=== PATIENT | male | born 1945 | race Caucasian/White ===

== ENCOUNTER 2017-02-27 03:16 | Emergency (ER) | payer MEDICARE, BC ==
[2017-02-27 03:41] LABS: Hematocrit 40.1 % (42.0-52.0); Hemoglobin 13.6 gm/dL (13.5-18.0); Mean Cell Volume 89.3 fl (78-100); Mean Corpuscular Hemoglobin 30.3 pg (27-31); Mean Corpuscular Hgb Conc 33.9 g/dl (32-36); Mean Platelet Volume 10.1 fl (6.0-9.5); Platelet Count 224 K/mm3 (150-450); Red Blood Count 4.49 M/mm3 (4.7-6.0); Red Cell Distribution Width 12.6 % (11.5-14.0); White Blood Count 20.2 K/mm3 (4.0-10.5)
[2017-02-27 03:54] LABS: Albumin * 3.6 gm/dl (3.4-5.0); Anion Gap 16.5 mmol/L (6.8-13.8); BUN/Creatinine Ratio 14.7 (9.0-21.6); Bilirubin, Total 0.6 mg/dL (0.0-1.1); Ca. Corrected For Albumin 9.3 mg/dL (8.4-10.2); Calcium * 9.3 mg/dL (7.9-10.9); Carbon Dioxide 23.7 mmol/L (24-32.6); Potassium 4.2 mmol/L (3.4-4.6); Total Protein 7.5 gm/dL (6.2-8.2)
[2017-02-27 04:00] LABS: Total Cells Counted 100
[2017-02-27] MEDS ORDERED: ALTEPLASE 1 MG UNIT ONE (04:00)
[2017-02-27 04:01] VITALS: BP 179/84
[2017-02-27 04:07] LABS: Atypical (Reactive) Lymph 1 % (0-2); Basophil 1 % (0-1); Dohle Bodies 1+; Eosinophil 4 % (0-3); Hypersegmented Polys 3+; Lymphocyte 51 % (20-51); Monocyte 4 % (0-9); Neutrophil 39 % (42-75); Neutrophil # 7.9 K/mm3 (1.3-6.0); Platelet Estimate Increased (NORMAL); Rouleaux 2+
--- NOTE | 2017-02-27 04:19 | ERNOTE ---
Neuro HPI ER Record Presenting Symptoms: weakness, numbness, impaired speech Time Seen by Provider: 02/27/17 03:20 Source: patient Exam Limitations: clinical condition Allergies/Adverse Reactions: Allergies Allergy/AdvReac Type Severity Reaction Status Date / Time No Known Drug Allergies Allergy Verified 02/27/17 03:28 - History of Present Illness Narrative: Pt states he was up as he generally is at night, he began to notice his right arm and leg were weak and he was having difficulty speaking around 01:30. He had difficulty alerting the others in the house. Onset: sudden onset - around 01:30 Severity: moderate - Character of Deficits New weakness: Present: RUE, RLE, facial (rt) Altered sensation: Present: facial (rt) Additional Deficits: Present: impaired speech, decrease ability to stand, decrease ability to walk Baseline Cognition: Present: alert, oriented x 4 Baseline Gait: Present: walks w/o assistance Associated Symptoms: Reports: none Review of Systems - Review of Systems Constitutional: Absent: recent illness, fever, chills EYE: Present: no symptoms reported ENT: Present: no symptoms reported Respiratory: Absent: shortness of breath Cardiology: Absent: chest pain Gastrointestinal/Abdominal: Present: nausea, vomiting - in the ED Genitourinary: Present: no symptoms reported Musculoskeletal: Present: no symptoms reported Neurological: Present: See HPI. Absent: headache Endocrine: Present: no symptoms reported Hematologic/Lymphatic: Present: no symptoms reported Psych: Present: no symptoms reported - Patient's Past Medical History Patient History - Cardiac/Respiratory: Hypertension Physical Exam - Physical Exam General Appearance: Present: wd/wn, alert, mild distress Eye Exam: PERRL: bilateral, EOMI: bilateral Ears, Nose, Throat: Present: normal ENT inspection Neck: Present: normal inspection, nontender Respiratory: Present: no respiratory distress, lungs clear Cardiovascular/Chest: Present: regular rate, rhythm, no murmur Gastrointestinal/Abdominal: Present: normal bowel sounds, nontender Extremity Exam: Present: normal inspection Neurological Exam: Present: alert, oriented, facial droop - right, motor weakness - right arm and leg, other - dysarthria Skin Exam: Present: normal color, warm/dry Lymphatic Exam: Present: no adenopathy Carla Coma Scale - Assess Eye Opening: Spontaneous Motor: Obeys Commands Verbal: Oriented - Total Coma Scale Total: 15 Initial Stroke Assessment - NIH Stroke Scale Level of Consciousness: Alert LOC Questions (Year and Age): Answers both correctly LOC Commands (open/close eyes/fist): Performs both correctly Lateral Gaze Paresis: None Visual Field Loss: No visual loss Facial Palsy: Partial facial paralysis Right Arm Motor (10 sec hold): Drift, effort made Left Arm Motor (10 sec hold): No drift Right Leg Motor (5 sec hold): Drift, effort made Left Leg Motor (5 sec hold): No drift Limb Ataxia (finger/nose heel/gar): Present in 2 limbs If present, ataxia in:: Right arm, Right leg Sensory Loss (pinprick arms/legs/face): No sensory loss Language Aphasia (description/naming/reading): No aphasia; normal Dysarthria (speech clarity): Slurring, intelligeble Neglect Inattention (visual/tactile/auditory/spatial/person): No neglect Initial Stroke Scale Score:: 9 - Stroke Risk Assessment Stroke Risk Assessment Level: 5-15 Mild-Mod Severe Imp Stroke Inclusion/Exclusion Cri - Inclusion Questions: Yes Onset of symptoms <3 1/2 hours of admission to ETC: Yes - Exclusion Questions: Major symptoms rapidly improving: No Seizure at onset of stroke: No SBP>185; DBP>110 at time treatment is to begin: No Patient received Heparin or Coumadin within 48 hours: No Patient has elevated PTT or Protime/INR: No Stroke, head injury, major surgery, serious trauma in 3 mon.: No Previous intracranial hemmorhage: No Recent NE: No Known AV malformation or aneurysm: No Blood glucose <50mg/dl or >400mg/dl: No NIHSS Score <4 or >22 performed by physician: No - Notification [facility] Team /[facility] Team : 04:[address] Estes Secondary Stroke Assessment - Results of Tests Evidence of acute intracranial bleed: No Evidence of acute ischemic stroke: No CT result is negative: Yes CT results reported by : Sean Null - TPA Decision Repeat NIHSS scale per ERP: Yes Onset of symptoms & inclusion/exclusion reviewed: Yes Phoned stroke team & permission to proceed given: Yes Is TPA administration indicated?: Yes Benefits & risks of TPA administration explained: Yes Permission for TPA administration obtained: Yes ED Progress - Results and Orders Patient's Lab Results:: I have reviewed the patient's lab results. Results and Orders: Laboratory Tests 02/27/17 02/27/17 02/27/17 03:24 03:24 03:24 WBC 20.2 H Hgb 13.6 Hct 40.1 L Plt Count 224 ESR 42 H Sodium 139 Potassium 4.2 Chloride 103 Carbon Dioxide 23.7 L Anion Gap 16.5 H BUN 14 Creatinine 0.95 Est GFR (Non-Af Amer) 83 BUN/Creatinine Ratio 14.7 Random Glucose 223 H Calcium 9.3 Total Bilirubin 0.6 AST 10 ALT 9 L Alkaline Phosphatase 80 Total Protein 7.5 Albumin 3.6 - Vital Signs Patient's Vital Signs:: I have reviewed the patient's vital signs. - EKG EKG: NSR EKG read: Interp. by me - X-Ray X-Ray #1 X-Ray: chest Interpretation: Interp. by me X-ray Comments: normal - CT/Ultrasound CT/Ultrasound Narrative: No acute intracranial hemorrhage or large vascular ischemic changes. Possible old small lacunar infarcts in the left basal ganglia. Global atrophy. Chronic microvascular changes. No fracture. Mucosal thickening in the right maxillary sinus - Progress/Reassessment Progress:: Unchanged Progress Note-Subjective: 02/27/17 04:23 Air evac arrived around 04:10 Pt being readied for transport. Pt was given bolus of TPA and air evac will start the drip before leaving. Pt symptoms continue to be stable. Departure Clinical Impression: CVA (cerebral vascular accident) Qualifiers: CVA mechanism: unspecified Qualified Code(s): I63.9 - Cerebral infarction, unspecified - Departure Disposition: [facility] Condition: Serious Referrals: Mary Jo Perez MD [Primary Care Provider] -
--- OUTSIDE RECORDS SUMMARY | 2017-02-27 04:43 | XMS REPORT | Continuity of Care Document ---
:1945 Author Organization [facility] ([facility]) Address [address] [place] [address] Phone [phone] Care Team Providers Name Role Phone Ginny Perezchristiancarley Primary Care Provider [phone] Source Comments This disclosure is being made pursuant to the Care Everywhere program, applicable federal and state laws, and may not contain all informaitonavailable regarding this patient.[facility] ([facility]) Active Allergies and Adverse Reactions No Known Allergies Current Medications Prescription Sig. Disp. Refills Start Date End Date Status SUPPLY ONE TOUCH ULTRA TEST BLOOD SUGARS 3 12/20/2016 Active test strips DIRECTED DAILY glipiZIDE 5 mg XL tablet 01/20/2017 Active diltiaZEM 360 mg ER 01/20/2017 Active capsule SUPPLY ONE TOUCH DELICA daily. As directed 2 12/20/2016 Active lancets lisinopril 40 mg tablet 01/18/2017 Active metFORMIN 1,000 mg 01/20/2017 Active tablet rosuvastatin 10 mg 01/18/2017 Active tablet Active Problems Not on file Most Recent Encounters Date Type Specialty Providers Description 02/27/2017 Hospital Encounter Emergency Medicine 02/24/2017 Hospital Encounter Hematology and Chencho Burns Chief Comp: Patient Oncology OMD Reported Reason For Visit 01/27/2017 Hospital Encounter Hematology and Default, Other Dx: CLL ( chronic Oncology Billg - Defo lymphocytic Chencho Burns leukemia) (Primary MD Ute Dx) 01/27/2017 Orders Only Pathology Leobardo, Dx: CLL (chronic Peterson V lymphocytic leukemia) Social History Tobacco Use Types Packs/Day Years Used Date Former Smoker Cigarettes Quit: 01/27/2005 Smokeless Tobacco: Never Used Last Filed Vital Signs Vital Sign Reading Time Taken Blood Pressure 120/70 02/24/2017 11:24 AM CDT Pulse 79 02/24/2017 11:24 AM CDT Temperature 36 C (96.8 F) 02/24/2017 11:24 AM CDT Respiratory Rate 16 02/24/2017 11:24 AM CDT Height 1.753 m (5' 9.02") 02/24/2017 11:24 AM CDT Weight 84.278 kg (185 lb 12.8 oz) 02/24/2017 11:24 AM CDT Body Mass Index 27.43 02/24/2017 11:24 AM CDT Oxygen Saturation 95% 02/24/2017 11:24 AM CDT Plan of Care Health Maintenance Due Date Last Done Comments HCV Screening 1945 Hepatitis B Vaccine (1 of 3 - Primary Series) 1945 Tdap Vaccine 1956 DIABETIC: Cholesterol 1963 Diabetic: Hdl 1963 DIABETIC: Hemoglobin A1C 1963 Diabetic: Ldl 1963 DIABETIC: Microalbumin 1963 DIABETIC: Triglycerides 1963 Td Vaccine 1963 Colonoscopy 09/21/1996 Prostate Cancer Screening 1996 Zoster Vaccine 2006 Pneumococcal Vaccine (1 of 2 - PCV13) 2011 DIABETIC: Foot Exam 01/27/2017 DIABETIC: Retinal Eye Exam 01/27/2017 Influenza Vaccine: Seasonal (Season Ended) 2017 Results from Last 3 Months CYTOGENETICS - FISH STUDY PATHOLOGY (01/27/2017 11:19 AM) Component Value Range Case Report Cytogenetics Fish Study Case: [id number] Authorizing Provider:Chencho Burns MD Collected: 01/27/2017 11:19 AM [facility] LabReceived: 01/27/2017 04:39 PM Pathologist: Alexey Gresham MD Specimen:Blood FISH Final Result Abnormal(A) Normal Final Interpretation Comment Patient Name: MAT ARRINGTON Physician: Dr. Chencho Burns Cytogenetics Lab No.:[id number] Specimen No.:[id number] FISH Performed on: ONCOLOGY BLOOD Date Collected:01/27/2017 Date Requested:01/27/2017 Date of Visit: 01/27/2017 Date Received in Lab:01/27/2017 Date of Final Report:01/30/2017 Technologist(s): BAHMAN HOFFMAN INDICATIONS: CLL PANEL, CLL METHODS/RESULTS: Fluorescence in situ hybridization (FISH) studies were performed on nuclei using the DNA probe sets DIEGO/p53 [11q22.3/17p13.1], CEP12/ [id number]/LAMP1[12cen/13q14.3/13q34], MYB/CEP6 [6q23/6cen] and CCND1/IgH [11q13/ 14q32.3]. INTERPRETATION: ABNORMAL FISH RESULTS Molecular cytogenetic studies were performed using the CLL probe panel sets indicated above.A total of 300 nuclei were analyzed for each probe set. 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 These findings should be interpreted in conjunction with morphology and/or other ancillary studies. NOMENCLATURE:nuc samuel(DIEGO,p53)x2[300],(U81F9k2,H63F284t8,EHZY8w1)[237/300],( MYB,D6Z1)x2[300],(CCND1,IgH)x2[300] This test was developed and its performance characteristics determined by the [facility] as required by the CLIA '88 regulations.It has not been cleared or approved by the U.S. Food and Drug Administration.The FDA has determined that such clearance or approval is not necessary.Pursuant to the requirements of CLIA '88, this laboratory has established and certified the test's accuracy and precision.This test is used for clinical purposes and should not be regarded as investigational or for research. Specimen Tissue - Blood
== END 2017-02-27 04:21 | disposition short-term general hospital (02) ==
LOC: ER 03:16
DX: I63.9 Cerebral infarction, unspecified (principal)
CPT/HCPCS: 36415; 70450; 71010; 80053; 85025; 85652; 93005; 96374; 99284; J2997